=== PATIENT | male | born 1955 | race Caucasian/White ===

== ENCOUNTER → 2022-04-07 07:57 | Outpatient (CLI) | payer MEDICARE, OTHER, SELFPAY ==
--- NOTE | 2022-04-07 | DI.US.S_ITS ---
PROCEDURE: US ABD AORTA ANEURYSM SCREEN INDICATIONS: SCREEN TECHNIQUE: Real time scanning was performed of the aorta and iliac arteries, with image documentation. COMPARISON: None. FINDINGS: Aorta: Proximal aorta measures 2.2 centimeters. Mid aorta measures 1.7 centimeters. Distal aorta measures 1.6 centimeters. Iliac arteries: Right common iliac artery measures 0.7 centimeters. Left common iliac artery measures 0.8 centimeters. IMPRESSION: No abdominal aortic aneurysm. Dictated by: Alex Florentino M.D. on 04/07/2022 at 8:56 Approved by: Alex Florentino M.D. on 04/07/2022 at 8:57
== END ==
PROVIDERS: PCP Student in an Organized Health Care Education/Training Program; Referring Provider Student in an Organized Health Care Education/Training Program; Visit Provider Student in an Organized Health Care Education/Training Program
DX: Z13.6 Encounter for screening for cardiovascular disorders (principal)
CPT/HCPCS: 76706